=== PATIENT | male | born 1940 | race Hispanic/Latino ===

== ENCOUNTER 2018-11-16 03:51 | Emergency (ER) | payer MEDICARE, OTHER ==
[~2018-11-16] VITALS: Ht 170.2 cm; Wt 79.4 kg
[~2018-11-16 03:51] MED LIST: Z.0.FLOMAX0.4 MG PO; Z.0.GLIPIZIDE5 MG PO; Z.0.LISINOPRIL10 MG PO
--- NOTE | 2018-11-16 03:51 | NUR ---
guidry catheter bag tubing noted c cloudy urine and sediment in tubing. catheter bag changed at this time.
[2018-11-16] MEDS ORDERED: FLOMAX0.4 MG PO (04:00)
[2018-11-16] MEDS ORDERED: SODIUM CHLORIDE 0.9% 1000ML 1,000 ML IV ONE (04:00)
[2018-11-16] MEDS ORDERED: ZETIA10 MG PO (04:01)
[2018-11-16] MEDS ORDERED: eliquis PO (04:01)
[2018-11-16] MEDS ORDERED: FENOFIBRATE145 MG PO (04:02)
[2018-11-16] MEDS ORDERED: GLIPIZIDE ER5 MG PO (04:02)
[2018-11-16] MEDS ORDERED: LATANOPROST2.5 ML OS (04:09)
[2018-11-16] MEDS ORDERED: DORZOLAMIDE-TIM10 ML OS (04:09)
[2018-11-16 04:10] LABS: BASOPHILS % 0.2 % (0.0-1.0); EOSINOPHILS # (AUTO) 0.1 (0.0-0.4); HEMATOCRIT 36.8 % (38.2-49.6); HEMOGLOBIN 12.3 g/dL (14.0-18.0); LYMPHOCYTES # (AUTO) 1.5 (1.0-3.2); MEAN CORPUSCULAR HEMOGLOBIN 30.4 pg (28-32); MEAN CORPUSCULAR HGB CONC 33.4 g/dL (31-35); MEAN CORPUSCULAR VOLUME 91.1 fL (81-99); MONOCYTES # (AUTO) 0.8 (0.2-0.8); MONOCYTES % 6.3 % (4.4-11.3); NEUTROPHILS # (AUTO) 10.1 (2.1-6.9); NEUTROPHILS % 80.1 % (38.7-80.0); PLATELET COUNT 274 x10e3/uL (140-360); RED BLOOD COUNT 4.04 x10e6/uL (4.3-5.7); RED CELL DISTRIBUTION WIDTH 12.9 % (11.7-14.4)
[2018-11-16 04:20] LABS: INR 1.02; PROTHROMBIN TIME 13.9 seconds (11.9-14.5)
[2018-11-16 04:21] LABS: BILIRUBIN,URINE NEGATIVE (NEGATIVE); CLARITY,URINE SL CLOUDY (CLEAR); COLOR,URINE YELLOW (YELLOW); KETONES,URINE NEGATIVE (NEGATIVE); LEUKOCYTE ESTERASE ,URINE 1+ (NEGATIVE); NITRITE,URINE NEGATIVE (NEGATIVE); PARTIAL THROMBOPLASTIN TIME 45.1 seconds (23.8-35.5); PROTEIN,URINE DIPSTICK 2+ (NEGATIVE); URINE UROBILINOGEN 0.2 mg/dL (0.2 - 1)
[2018-11-16 04:22] LABS: BACTERIA,URINE PRESENT /HPF; EPITHELIAL CELLS,URINE RARE /LPF
[2018-11-16 04:33] LABS: ALBUMIN 3.6 g/dL (3.5-5.0); ALBUMIN/GLOBULIN RATIO 0.9 (0.8-2.0); ANION GAP 13.3 mmol/L (8-16); CALCIUM 9.9 mg/dL (8.4-10.2); CREATININE, SERUM 2.11 mg/dL (0.72-1.25); POTASSIUM 4.3 mmol/L (3.5-5.1)
[2018-11-16 04:39] LABS: CREATINE KINASE MB 0.9 ng/mL (0-5.0)
--- NOTE | 2018-11-16 04:50 | Diagnostic Imaging Report ---
Examination: Single AP view of the chest. COMPARISON: None. INDICATION: Fever DISCUSSION: Lines/tubes: None. Lungs: The lungs are well inflated and clear. No pneumonia or pulmonary edema. Pleura: No pleural effusion or pneumothorax. Heart and mediastinum: The heart and the mediastinum are unremarkable. Bones and soft tissues: No acute bony abnormalities. IMPRESSION: 1. No acute cardiopulmonary abnormalities. Signed by: Dr. Jeremias Clayton M.D. on 11/16/2018 4:47 AM
[2018-11-16] MEDS ORDERED: CEFTRIAXONE SOD 1 GM/NS 50 ML 50 ML IV ONE (05:00)
[2018-11-16 05:34] VITALS: BP 144/71
== END 2018-11-16 05:44 | disposition home or self-care (01) ==
LOC: ER 03:51
DX: R50.9 Fever, unspecified (principal); N30.91 Cystitis, unspecified with hematuria
CPT/HCPCS: 36415; 71045; 80053; 81001; 82550; 82553; 83605; 84484; 85025; 85610; 85730; 87040; 87086; 87186; 87400; 93005; 99284; J0696; J7030

== ENCOUNTER 2021-12-21 22:48 | Inpatient (IN) | payer MEDICARE ==
[~2021-12-21] VITALS: Ht 170.2 cm; Wt 79.4 kg
[~2021-12-21 22:48] MED LIST changes: +DORZOLAMIDE-TIM10 ML OS; +FENOFIBRATE145 MG PO; +FLOMAX0.4 MG PO; +GLIPIZIDE ER5 MG PO; +LATANOPROST2.5 ML OS; +ZETIA10 MG PO; +eliquis PO
[2021-12-21 23:28] LABS: BASOPHILS % 0.5 % (0.0-1.0); EOSINOPHILS # (AUTO) 0.2 (0.0-0.4); EOSINOPHILS % 5.3 % (0.0-6.0); LYMPHOCYTES # (AUTO) 1.5 (1.0-3.2); LYMPHOCYTES % 34.8 % (18.0-39.1); MEAN CORPUSCULAR HEMOGLOBIN 31.1 pg (28-32); MEAN CORPUSCULAR HGB CONC 31.6 g/dL (31-35); MEAN CORPUSCULAR VOLUME 98.4 fL (81-99); MONOCYTES # (AUTO) 0.4 (0.2-0.8); MONOCYTES % 9.6 % (4.4-11.3); NEUTROPHILS # (AUTO) 2.1 (2.1-6.9); NEUTROPHILS % 49.6 % (38.7-80.0); PLATELET COUNT 222 x10e3/uL (140-360); RED BLOOD COUNT 3.86 x10e6/uL (4.3-5.7); RED CELL DISTRIBUTION WIDTH 14.3 % (11.7-14.4)
[2021-12-21 23:47] LABS: ALBUMIN 3.1 g/dL (3.5-5.0); ALBUMIN/GLOBULIN RATIO 0.8 (0.8-2.0); CALCIUM 8.6 mg/dL (8.4-10.2); CREATININE, SERUM 1.53 mg/dL (0.72-1.25)
[2021-12-21 23:54] LABS: CREATINE KINASE MB 4.3 ng/mL (0-5.0)
[2021-12-22] VITALS (9 sets, daily range): BP systolic 129–167; BP diastolic 67–99
[2021-12-22] MEDS ORDERED: IOPAMIDOL 370 MG/ML 100 ML INFUS..BTL INJ ONE (00:22)
[2021-12-22] MEDS ORDERED: SODIUM CHLORIDE 0.9% 1000ML 1,000 ML IV SCH (03:15)
[2021-12-22] MEDS ORDERED: LEVOTHYROXINE50 MCG PO (05:54)
[2021-12-22] MEDS ORDERED: PIOGLITAZONE HC45 MG PO (05:54)
[2021-12-22] MEDS ORDERED: LOSARTAN POTASS25 MG PO (05:54)
[2021-12-22] MEDS ORDERED: WARFARIN SODIUM3 MG PO (05:54)
[2021-12-22 08:37] LABS: CREATINE KINASE MB 2.2 ng/mL (0-5.0)
[2021-12-22] MEDS: FENOFIBRATE 160 MG TAB PO SCH (09:00)
[2021-12-22] MEDS: TAMSULOSIN HCL 0.4 MG CAP PO SCH (09:54)
[2021-12-22] MEDS: EZETIMIBE 10 MG TAB PO SCH (09:54)
[2021-12-22] MEDS: LEVOTHYROXINE SODIUM 50 MCG TAB PO SCH (09:54)
[2021-12-22 10:37] LABS: INR 1.95; PROTHROMBIN TIME 23.8 seconds (11.9-14.5)
[2021-12-22] MEDS: DORZOLAMIDE/TIMOLOL (OPTH SOL) 10 ML DRPETTE OP SCH ×2 (14:57→17:15)
[2021-12-22] MEDS ORDERED: DEXTROSE 50% SYRINGE 50 ML IV PRN (16:45)
[2021-12-22] MEDS ORDERED: WARFARIN SOD 3 MG TAB PO SCH (17:00)
[2021-12-22] MEDS: INSULIN LISPRO 100 UNIT/1 ML 3ML VIAL SQ SCH ×2 (17:00→21:00)
[2021-12-22 18:07] LABS: CREATINE KINASE MB 1.8 ng/mL (0-5.0)
[2021-12-22 18:46] LABS: CHOL/HDL RATIO 4.7 (3.9-4.7)
[2021-12-22] MEDS: LATANOPROST(OPTH) 2.5 ML BTL OS SCH (21:27)
[2021-12-22] MEDS: ATORVASTATIN 40 MG TAB PO SCH (21:29)
[2021-12-23] VITALS: BP 132/76
[2021-12-23 04:00] VITALS: BP 144/61
[2021-12-23] MEDS: LEVOTHYROXINE SODIUM 50 MCG TAB PO SCH (06:27)
[2021-12-23 06:29] LABS: BASOPHILS % 0.4 % (0.0-1.0); EOSINOPHILS # (AUTO) 0.2 (0.0-0.4); EOSINOPHILS % 4.4 % (0.0-6.0); HEMATOCRIT 40.9 % (38.2-49.6); HEMOGLOBIN 13.1 g/dL (14.0-18.0); LYMPHOCYTES # (AUTO) 1.5 (1.0-3.2); MEAN CORPUSCULAR HEMOGLOBIN 30.9 pg (28-32); MEAN CORPUSCULAR VOLUME 96.5 fL (81-99); MONOCYTES # (AUTO) 0.5 (0.2-0.8); MONOCYTES % 8.5 % (4.4-11.3); NEUTROPHILS # (AUTO) 3.3 (2.1-6.9); NEUTROPHILS % 59.5 % (38.7-80.0); PLATELET COUNT 236 x10e3/uL (140-360); RED BLOOD COUNT 4.24 x10e6/uL (4.3-5.7); RED CELL DISTRIBUTION WIDTH 14.2 % (11.7-14.4)
[2021-12-23 06:41] LABS: INR 1.49; PROTHROMBIN TIME 19.3 seconds (11.9-14.5)
[2021-12-23 06:56] LABS: ALBUMIN 3.3 g/dL (3.5-5.0); ALBUMIN/GLOBULIN RATIO 0.9 (0.8-2.0); ANION GAP 11.2 mmol/L (8-16); CALCIUM 9.2 mg/dL (8.4-10.2); CREATININE, SERUM 1.22 mg/dL (0.72-1.25); POTASSIUM 4.2 mmol/L (3.5-5.1)
[2021-12-23] MEDS: INSULIN LISPRO 100 UNIT/1 ML 3ML VIAL SQ SCH ×4 (07:30→21:00)
[2021-12-23] MEDS ORDERED: GLIPIZIDE 5 MG TAB ER PO SCH (07:30)
[2021-12-23 08:26] VITALS: BP 139/71
[2021-12-23] MEDS: TAMSULOSIN HCL 0.4 MG CAP PO SCH (08:35)
[2021-12-23] MEDS: GLIPIZIDE 5 MG TAB ER PO SCH ×2 (08:35→17:07)
[2021-12-23] MEDS: EZETIMIBE 10 MG TAB PO SCH (08:35)
[2021-12-23] MEDS: DORZOLAMIDE/TIMOLOL (OPTH SOL) 10 ML DRPETTE OP SCH ×3 (09:00→17:09)
[2021-12-23 09:26] VITALS: BP 139/71
[2021-12-23] MEDS ORDERED: ENOXAPARIN SOD INJ 40 MG/0.4 ML SYR SC SCH (09:30)
[2021-12-23] MEDS: FENOFIBRATE 160 MG TAB PO SCH (10:33)
[2021-12-23] MEDS: PIOGLITAZONE HCL 45 MG TAB PO SCH (10:33)
[2021-12-23 11:25] VITALS: BP 165/91
[2021-12-23] MEDS ORDERED: WARFARIN SOD 2 MG TAB PO SCH (17:00)
[2021-12-23] MEDS: ENOXAPARIN SOD INJ 40 MG/0.4 ML SYR SC SCH (17:11)
[2021-12-23 20:00] VITALS: BP 130/68
[2021-12-23] MEDS: LATANOPROST(OPTH) 2.5 ML BTL OS SCH (21:18)
[2021-12-23] MEDS: ATORVASTATIN 40 MG TAB PO SCH (21:18)
[2021-12-24] VITALS (8 sets, daily range): BP systolic 113–152; BP diastolic 65–77
[2021-12-24] MEDS: ENOXAPARIN SOD INJ 40 MG/0.4 ML SYR SC SCH ×2 (05:52→17:00)
[2021-12-24] MEDS: LEVOTHYROXINE SODIUM 50 MCG TAB PO SCH (05:52)
[2021-12-24 06:58] LABS: INR 1.59; PROTHROMBIN TIME 20.3 seconds (11.9-14.5)
[2021-12-24] MEDS: INSULIN LISPRO 100 UNIT/1 ML 3ML VIAL SQ SCH ×4 (07:30→21:00)
[2021-12-24] MEDS: GLIPIZIDE 5 MG TAB ER PO SCH ×2 (07:30→16:30)
[2021-12-24] MEDS: FENOFIBRATE 160 MG TAB PO SCH (09:00)
[2021-12-24] MEDS: TAMSULOSIN HCL 0.4 MG CAP PO SCH (09:00)
[2021-12-24] MEDS: DORZOLAMIDE/TIMOLOL (OPTH SOL) 10 ML DRPETTE OP SCH ×2 (09:00→17:00)
[2021-12-24] MEDS: EZETIMIBE 10 MG TAB PO SCH (09:00)
[2021-12-24] MEDS: PIOGLITAZONE HCL 45 MG TAB PO SCH (09:14)
[2021-12-24] MEDS ORDERED: WARFARIN SOD 5 MG TAB PO ONE (09:30)
[2021-12-24] MEDS: LATANOPROST(OPTH) 2.5 ML BTL OS SCH (21:15)
[2021-12-24] MEDS: ATORVASTATIN 40 MG TAB PO SCH (21:16)
[2021-12-25] VITALS: BP 145/61
[2021-12-25 05:16] VITALS: BP 154/86
[2021-12-25] MEDS: LEVOTHYROXINE SODIUM 50 MCG TAB PO SCH (05:16)
[2021-12-25] MEDS: ENOXAPARIN SOD INJ 40 MG/0.4 ML SYR SC SCH (05:16)
[2021-12-25 07:03] LABS: INR 2.13; PROTHROMBIN TIME 25.5 seconds (11.9-14.5)
[2021-12-25] MEDS: GLIPIZIDE 5 MG TAB ER PO SCH (07:30)
[2021-12-25] MEDS: PIOGLITAZONE HCL 45 MG TAB PO SCH (07:30)
[2021-12-25] MEDS: INSULIN LISPRO 100 UNIT/1 ML 3ML VIAL SQ SCH ×2 (07:30→11:30)
[2021-12-25 07:38] VITALS: BP 156/70
[2021-12-25] MEDS: TAMSULOSIN HCL 0.4 MG CAP PO SCH (09:00)
[2021-12-25] MEDS: FENOFIBRATE 160 MG TAB PO SCH (09:00)
[2021-12-25] MEDS: EZETIMIBE 10 MG TAB PO SCH (09:00)
[2021-12-25] MEDS: DORZOLAMIDE/TIMOLOL (OPTH SOL) 10 ML DRPETTE OP SCH (09:00)
[2021-12-25 10:05] VITALS: BP 156/70
[2021-12-25] MEDS ORDERED: CIPRO500 MG PO (10:43)
[2021-12-25] MEDS ORDERED: ONDANSETRON ODT4 MG SL (10:44)
[2021-12-25] MEDS ORDERED: NEURONTIN300 MG PO (10:45)
[2021-12-25] MEDS ORDERED: TYLENOL #3 PO (10:45)
[2021-12-25] MEDS ORDERED: WARFARIN SODIUM2 MG PO (10:56)
[2021-12-25] MEDS ORDERED: LIPITOR80 MG PO (10:57)
== END 2021-12-25 12:18 | disposition home or self-care (01) | DRG 65 ==
LOC: ER 22:58 → ERHOLD 12-22 03:16 → MED/SURG 12-22 05:34
PROVIDERS: ADMIT Internal Medicine; ATTEND Internal Medicine
DX: I63.412 Cerebral infarction due to embolism of left middle cerebral artery (principal); G81.91 Hemiplegia, unspecified affecting right dominant side; E11.22 Type 2 diabetes mellitus with diabetic chronic kidney disease; M16.0 Bilateral primary osteoarthritis of hip; N18.30 Chronic kidney disease, stage 3 unspecified; E78.5 Hyperlipidemia, unspecified; I48.91 Unspecified atrial fibrillation; I12.9 Hypertensive chronic kidney disease with stage 1 through stage 4 chronic kidney disease, or unspecified chronic kidney disease; Z91.81 History of falling; T45.515A Adverse effect of anticoagulants, initial encounter; Z20.822 Contact with and (suspected) exposure to COVID-19; Z79.84 Long term (current) use of oral hypoglycemic drugs
CPT/HCPCS: 36415; 70496; 70498; 70551; 80053; 80061; 82550; 82553; 82948; 84484; 85025; 85610; 93005; 93306; 93880; 97139; 99284; J1650; J7030; Q9967